=== PATIENT | male | born 1970 | race Caucasian/White ===

== ENCOUNTER 2017-03-25 21:43 | Emergency (ER) | payer OTHER ==
[2017-03-25 21:55] VITALS: BP 150/88
--- NOTE | 2017-03-25 22:02 | ED Physician Documentation ---
General Adult - HISTORIAN Historian: patient - HPI Stated Complaint: Dental Pain Chief Complaint: General Adult Onset: hours Timing: still present Severity: moderate Further Comments: yes (Pt is a 46 yo male with dental pain that began this am. Pain is in the R lower jaw. Pt will try to f/u with dentist later this week.) - ROS CONST: no problems EYES/ENT: other (dental pain) CVS/RESP: none GI/: none MS/SKIN/LYMPH: none - PAST HX Past History: none Allergies/Adverse Reactions: Allergies Allergy/AdvReac Type Severity Reaction Status Date / Time bismuth subsalicylate Allergy Verified 03/25/17 21:52 [From Pepto-Bismol] Home Medications: Ambulatory Orders Medication Instructions Recorded NK [NK] 03/25/17 - SOCIAL HX Smoking History: non-smoker - FAMILY HX Family History: No - VITAL SIGNS Vital Signs: Vital Signs Temp Pulse Resp BP Pulse Ox 98 F 75 18 150/88 96 03/25/17 21:45 03/25/17 21:45 03/25/17 21:45 03/25/17 21:45 03/25/17 21:45 - REVIEWED ASSESSMENTS Nursing Assessment Reviewed: Yes Vitals Reviewed: Yes Progress - Progress Progress: Rx Keflex 500 mg. Take one every 8 hrs for 10 days. Rx [place] (Hydrocodone/Acetaminophen) (/323). Take one or two every 4 to 6 hrs as needed for moderate to severe pain. General Adult Physical Exam - PHYSICAL EXAM GENERAL APPEARANCE: moderate distress EENT: pharynx normal, other (dental tenderness, L lower molar) NECK: normal inspection, supple RESPIRATORY: no resp distress CVS: reg rate & rhythm BACK: normal inspection SKIN: warm/dry, normal color EXTREMITIES: non-tender, normal range of motion, no evidence of injury NEURO: oriented X3, motor nml, sensation nml Discharge Clincal Impression: Pain, dental Referrals: Primary Doctor,No [Primary Care Provider] - Condition: Good Disposition: 01 HOME, SELF-CARE Decision to Admit: NO Decision Time: 22:04
[2017-03-25] MEDS ORDERED: HYDROcodone /APAP 5/325 1 EACH TABLET PO ONE (22:03)
[2017-03-25] MEDS ORDERED: CEPHALEXIN 250 MG CAPSULE PO ONE (22:03)
== END 2017-03-25 22:05 | disposition home or self-care (01) ==
LOC: ED 21:43
DX: K02.9 Dental caries, unspecified (principal)
CPT/HCPCS: 99282; A9270-GY

== ENCOUNTER 2018-11-06 09:36 | Emergency (ER) | payer SELFPAY ==
[2018-11-06] MEDS ORDERED: KETOROLAC TROMETHAMINE 60 MG/2 ML VIAL IM ONE (10:11)
== END 2018-11-06 10:45 | disposition home or self-care (01) ==
LOC: ED 09:36
DX: M62.830 Muscle spasm of back (principal); R21 Rash and other nonspecific skin eruption
CPT/HCPCS: 96372; 99283; J1885; J3360